=== PATIENT | male | born 1950 | race Caucasian/White ===

== ENCOUNTER 2022-10-08 12:17 | Inpatient (IN) | payer OTHER ==
[2022-10-08 12:53] VITALS: BMI 34.2
[2022-10-08] MEDS ORDERED: BENZOCAINE/MENTHOL (CHLORASEPTIC ) LOZENGE MM PRN (15:45)
[2022-10-08] MEDS ORDERED: NALOXONE HCL (KLOXXADO) 8 MG SPRAY NS PRN (15:45)
[2022-10-08] MEDS ORDERED: POLYETHYLENE GLYCOL (HEALTHYLAX) 3350 17 GM PACKET PO PRN (15:45)
[2022-10-08] MEDS ORDERED: BENZONATATE 200 MG CAPSULE PO PRN (15:45)
[2022-10-08] MEDS ORDERED: MAGNESIUM HYDROX 2400MG/30ML ORAL SUSPENSION 30 ML CUP PO PRN (15:45)
[2022-10-08] MEDS ORDERED: MAG HYDROX/AL HYDROX/SIMETH 30 ML UNIT-DOSE CUP PO PRN (15:45)
[2022-10-08] MEDS ORDERED: BISMUTH SUBSALICYLATE 524 MG/30 ML PO PRN (15:45)
[2022-10-08] MEDS ORDERED: guaiFENesin 600 MG TABLET.ER (FP) PO PRN (15:45)
[2022-10-08] MEDS ORDERED: LOPERAMIDE HCL 2 MG CAPSULE PO PRN (15:45)
[2022-10-08] MEDS ORDERED: IBUPROFEN 400 MG TABLET (FP) PO PRN (15:45)
[2022-10-08] MEDS ORDERED: NALOXONE HCL 0.4 MG/ML VIAL IM PRN (15:45)
[2022-10-08] MEDS ORDERED: methaDONE HCL 10 MG TABLET (FOR DETOX USE ONLY) ONE (16:45)
[2022-10-08] MEDS ORDERED: methaDONE HCL 10 MG TABLET (FOR DETOX USE ONLY) PO ONE (17:20)
[2022-10-08] MEDS: MELATONIN 5 MG TABLETS PO SCH (22:14)
[2022-10-08] MEDS: THIAMINE HCL 100 MG TABLET (FP) PO SCH (22:15)
[2022-10-08] MEDS: diazePAM 5 MG TABLET PO PRN (22:15)
[2022-10-09] MEDS ORDERED: ALBUTEROL SO4 HFA INHALER IH PRN (09:10)
[2022-10-09] MEDS: PRENATAL VITAMINS W/ FOLIC ACID TABLET (FP) PO SCH (10:02)
[2022-10-09] MEDS: amLODIPine BESYLATE 5 MG TABLET (FP) PO SCH (10:02)
[2022-10-09] MEDS: LOSARTAN POTASSIUM 50 MG TABLET PO SCH (10:02)
[2022-10-09 10:44] LABS: HEMATOCRIT 38.5 % (35.4-49); HEMOGLOBIN 12.4 GM/dL (11.7-16.9); MCH 28.1 pg (25.7-33.7); MCHC 32.2 g/dl (32.0-35.9); MEAN CELL VOLUME 87.5 fl (80-96); MEAN PLT VOLUME 9.7 fl (7.5-11.1); PLATELET COUNT 208 10^3/uL (134-434); RDW 14.6 % (11.9-15.9); WHITE BLOOD COUNT 10.2 K/mm3 (4.0-10.0)
[2022-10-09 10:49] LABS: POTASSIUM 5.1 mmol/L (3.5-5.1)
[2022-10-09 10:57] LABS: CREATININE 0.9 mg/dL (0.55-1.3)
[2022-10-09 10:58] LABS: BILIRUBIN,TOTAL 0.6 mg/dL (0.2-1); CALCIUM 8.8 mg/dL (8.5-10.1); TOT PROT 6.6 g/dl (6.4-8.2)
[2022-10-09 10:59] LABS: ALBUMIN 3.2 g/dl (3.4-5.0); BLOOD UREA NITROGEN 26.8 mg/dL (7-18)
[2022-10-09] MEDS: ACETAMINOPHEN 325 MG TABLET (FP) PO PRN (19:00)
[2022-10-09] MEDS: MELATONIN 5 MG TABLETS PO SCH (22:09)
[2022-10-09] MEDS: diazePAM 5 MG TABLET PO PRN (22:09)
[2022-10-09] MEDS: THIAMINE HCL 100 MG TABLET (FP) PO SCH (22:11)
[2022-10-09] MEDS: BACLOFEN 10 MG TABLET (FP) PO PRN (22:11)
[2022-10-09] MEDS: ATORVASTATIN CA 20 MG TABLET (FP) PO SCH (22:58)
[2022-10-10] MEDS: cloNIDine HCL 0.1 MG TABLET PO PRN ×3 (00:54→22:02)
[2022-10-10] MEDS: diazePAM 5 MG TABLET PO PRN ×2 (05:21→22:04)
[2022-10-10] MEDS: LOSARTAN POTASSIUM 50 MG TABLET PO SCH (09:07)
[2022-10-10] MEDS: amLODIPine BESYLATE 5 MG TABLET (FP) PO SCH (09:07)
[2022-10-10] MEDS: PRENATAL VITAMINS W/ FOLIC ACID TABLET (FP) PO SCH (09:08)
[2022-10-10] MEDS: BACLOFEN 10 MG TABLET (FP) PO PRN ×2 (09:08→18:32)
[2022-10-10] MEDS: IBUPROFEN 600 MG TABLET (FP) PO PRN (10:00)
[2022-10-10] MEDS ORDERED: METHOCARBAMOL 500 MG TABLET PO ONE (14:45)
[2022-10-10] MEDS: MELATONIN 5 MG TABLETS PO SCH (22:02)
[2022-10-10] MEDS: METHOCARBAMOL 500 MG TABLET PO SCH (22:02)
[2022-10-10] MEDS: THIAMINE HCL 100 MG TABLET (FP) PO SCH (22:03)
[2022-10-10] MEDS: ATORVASTATIN CA 20 MG TABLET (FP) PO SCH (22:04)
[2022-10-11] MEDS: IBUPROFEN 600 MG TABLET (FP) PO PRN ×2 (00:50→08:01)
[2022-10-11] MEDS: diazePAM 5 MG TABLET PO PRN ×2 (08:01→22:09)
[2022-10-11] MEDS: BACLOFEN 10 MG TABLET (FP) PO PRN (08:01)
[2022-10-11] MEDS ORDERED: methaDONE HCL 10 MG TABLET (FOR DETOX USE ONLY) PO ONE (10:00)
[2022-10-11] MEDS: amLODIPine BESYLATE 5 MG TABLET (FP) PO SCH (10:16)
[2022-10-11] MEDS: PRENATAL VITAMINS W/ FOLIC ACID TABLET (FP) PO SCH (10:16)
[2022-10-11] MEDS: METHOCARBAMOL 500 MG TABLET PO SCH ×2 (10:16→22:09)
[2022-10-11] MEDS: LOSARTAN POTASSIUM 50 MG TABLET PO SCH (10:16)
[2022-10-11] MEDS: DICYCLOMINE HCL 10 MG CAPSULE PO PRN (11:06)
[2022-10-11] MEDS: ACETAMINOPHEN 325 MG TABLET (FP) PO PRN (13:34)
[2022-10-11] MEDS: THIAMINE HCL 100 MG TABLET (FP) PO SCH (22:08)
[2022-10-11] MEDS: ATORVASTATIN CA 20 MG TABLET (FP) PO SCH (22:08)
[2022-10-11] MEDS: MELATONIN 5 MG TABLETS PO SCH (22:08)
[2022-10-12] MEDS: METHOCARBAMOL 500 MG TABLET PO SCH ×2 (09:58→22:11)
[2022-10-12] MEDS: LOSARTAN POTASSIUM 50 MG TABLET PO SCH (09:58)
[2022-10-12] MEDS: amLODIPine BESYLATE 5 MG TABLET (FP) PO SCH (09:59)
[2022-10-12] MEDS: PRENATAL VITAMINS W/ FOLIC ACID TABLET (FP) PO SCH (09:59)
[2022-10-12] MEDS: DICYCLOMINE HCL 10 MG CAPSULE PO PRN (14:10)
[2022-10-12 21:22] VITALS: PULSE 74; RESP 18
[2022-10-12] MEDS: MELATONIN 5 MG TABLETS PO SCH (22:10)
[2022-10-12] MEDS: THIAMINE HCL 100 MG TABLET (FP) PO SCH (22:10)
[2022-10-12] MEDS: ATORVASTATIN CA 20 MG TABLET (FP) PO SCH (22:11)
[2022-10-13] MEDS: PRENATAL VITAMINS W/ FOLIC ACID TABLET (FP) PO SCH (09:56)
[2022-10-13] MEDS: amLODIPine BESYLATE 5 MG TABLET (FP) PO SCH (09:56)
[2022-10-13] MEDS: LOSARTAN POTASSIUM 50 MG TABLET PO SCH (09:56)
[2022-10-13] MEDS: METHOCARBAMOL 500 MG TABLET PO SCH (09:56)
[2022-10-13 10:00] VITALS: BP 151/84; TEMP 97.8
== END 2022-10-13 11:29 | disposition home or self-care (01) | DRG 897 ==
LOC: YASAS 12:17 → Y3N 16:11
PROVIDERS: ADMIT Allergy & Immunology; ATTEND Surgery
PROC: HZ2ZZZZ Detoxification Services for Substance Abuse Treatment (ICD-10-PCS; principal; 2022-10-08)
DX: F11.23 Opioid dependence with withdrawal (principal); F10.230 Alcohol dependence with withdrawal, uncomplicated; I10 Essential (primary) hypertension; E78.5 Hyperlipidemia, unspecified; E78.2 Mixed hyperlipidemia
CPT/HCPCS: 36415; 80053; 85027; 86780; 87635; 93005; 93010; J0475